=== PATIENT | male | born 1955 | race Caucasian/White ===

== ENCOUNTER 2018-10-28 19:21 | Emergency (ER) | payer MEDICARE, BC ==
[~2018-10-28] VITALS: Ht 177.8 cm; Wt 61.3 kg
[2018-10-28 19:55] LABS: EOSINOPHILS # (AUTO) 0.2 X10'3 (0-0.9); EOSINOPHILS % (AUTO) 3.7 % (0-6); HEMOGLOBIN 14.1 g/dl (14.0-17.9); LYMPHOCYTES # (AUTO) 1.3 X10'3 (1.1-4.8); LYMPHOCYTES % (AUTO) 28.7 % (21-51); MEAN CORPUSCULAR HEMOGLOBIN 31.8 PG (27.0-31.0); MEAN CORPUSCULAR HGB CONC 33.6 g/dL (33.0-36.5); MEAN CORPUSCULAR VOLUME 94.5 FL (78-98); MEAN PLATELET VOLUME 10.4 FL (7.4-10.4); MONOCYTES # (AUTO) 0.5 X10'3 (0-0.9); MONOCYTES % (AUTO) 10.5 % (2-12); NEUTROPHILS # (AUTO) 2.5 X10'3 (1.8-7.7); NEUTROPHILS % (AUTO) 56.1 % (42-75); PLATELET COUNT 147 X10'3 (140-440); RED BLOOD COUNT 4.44 X10'6 (4.70-6.10); RED CELL DISTRIBUTION WIDTH 14.1 % (11.5-14.5); WHITE BLOOD COUNT 4.4 X10'3 (4.5-11.0)
[2018-10-28 20:11] LABS: ALANINE AMINOTRANSFERASE 23 U/L (12-78); ALBUMIN/GLOBULIN RATIO 1.3 (1.1-1.5); ALKALINE PHOSPHATASE 46 IU/L (46-116); ANION GAP 8 (8-16); ASPARTATE AMINO TRANSFERASE 13 U/L (10-37); BILIRUBIN,TOTAL 0.3 MG/DL (0.1-1.0); BLOOD UREA NITROGEN 13 MG/DL (7-18); CALCIUM 8.9 MG/DL (8.5-10.1); CHLORIDE 106 MMOL/L (99-107); CREATININE 1.18 MG/DL (0.60-1.10); GLUCOSE 105 MG/DL (70-104); LIPASE 216 U/L (73-393); POTASSIUM 4.1 MMOL/L (3.5-5.1); SODIUM 141 MMOL/L (135-145); TOTAL CARBON DIOXIDE 27.1 MMOL/L (24-32); eGFR 62 ML/MIN
[2018-10-28 20:35] LABS: CLARITY,URINE CLEAR (Clear); COLOR,URINE YELLOW (Yellow); GLUCOSE, URINE NEGATIVE (Neg); KETONES,URINE TRACE mg/dl (Neg); LEUKOCYTE ESTERASE ,URINE NEGATIVE (Neg); NITRITES, URINE NEGATIVE (Neg); OCCULT BLOOD,URINE NEGATIVE (Neg); PROTEIN,URINE NEGATIVE (Neg); UROBILINOGEN,URINE 0.2 E.U/dL (0.2-1.0)
[2018-10-28 20:40] LABS: UA COLLECTION TYPE VOIDED
[2018-10-28] MEDS ORDERED: morphine 4 MG/ML inj SYRINge IV ONE (21:00)
[2018-10-28] MEDS ORDERED: normal saline 1000ML IV soln IVB ONE (21:00)
[2018-10-28] MEDS ORDERED: ondansetron/PF 4mg/2ml inj IV ONE (21:05)
[2018-10-28] MEDS: diatr meglu/diatrizoate 30ml oral sol.-(3 dose) bottle PO SCH ×3 (21:59→23:32)
[2018-10-28] MEDS ORDERED: iohexol 300mg/ml 100ml inj. ONE (22:15)
--- NOTE | 2018-10-29 01:04 | NUR ---
Dr. Higginbotham talking with pt about possibility of admission. He reports to pt that he is awaiting Hospitalist to evaluate pt for admission.
[2018-10-29] MEDS ORDERED: morphine 4 MG/ML inj SYRINge IV ONE (01:05)
[2018-10-29] MEDS ORDERED: metoclopramide 5 mg/ml inj IV ONE (01:05)
[2018-10-29] MEDS ORDERED: SIMV10TA2 PO (01:10)
[2018-10-29] MEDS ORDERED: ZOLP10TA5 (01:10)
[2018-10-29] MEDS ORDERED: ALBU18HF2 INH (01:10)
[2018-10-29] MEDS ORDERED: HYDR-3972 (01:10)
[2018-10-29] MEDS ORDERED: pantoprazole 40 MG vial IV ONE (01:35)
[2018-10-29] MEDS ORDERED: ESOM20CA PO (01:36)
[2018-10-29] MEDS ORDERED: ESOMEPRAZOLE 40 MG VIAL IV ONE (01:40)
[2018-10-29 02:45] VITALS: BP 129/82
== END 2018-10-29 02:55 | disposition home or self-care (01) ==
LOC: ER 19:21
DX: K56.7 Ileus, unspecified (principal); R11.2 Nausea with vomiting, unspecified; I10 Essential (primary) hypertension; G89.29 Other chronic pain; Z98.890 Other specified postprocedural states; Z79.899 Other long term (current) drug therapy
CPT/HCPCS: 36415; 70450; 70486; 74018; 74177; 80053; 81003; 83690; 85025; 85610; 96361; 96374; 96375; 96376; 99284; J2270; J2405; J2765; J7030; Q9963; Q9967

== ENCOUNTER 2018-11-07 10:54 | Emergency (ER) | payer MEDICARE, BC ==
[~2018-11-07] VITALS: Ht 177.8 cm; Wt 72.0 kg
[~2018-11-07 10:54] MED LIST: ALBU18HF2 INH; ESOM20CA PO; HYDR-3972; SIMV10TA2 PO; ZOLP10TA5
[2018-11-07] MEDS ORDERED: ringers solution, lacted 1,000 ML IV ONE (12:40)
[2018-11-07] MEDS ORDERED: metoclopramide 5 mg/ml inj IV ONE (12:40)
[2018-11-07 14:03] LABS: BASOPHILS % (AUTO) 0.8 % (0-1); EOSINOPHILS # (AUTO) 0.1 X10'3 (0-0.9); EOSINOPHILS % (AUTO) 2.3 % (0-6); HEMATOCRIT 42.7 % (42.0-52.0); HEMOGLOBIN 14.1 g/dl (14.0-17.9); LYMPHOCYTES # (AUTO) 1.5 X10'3 (1.1-4.8); LYMPHOCYTES % (AUTO) 27.6 % (21-51); MEAN CORPUSCULAR HEMOGLOBIN 31.3 PG (27.0-31.0); MEAN CORPUSCULAR HGB CONC 33.1 g/dL (33.0-36.5); MEAN CORPUSCULAR VOLUME 94.5 FL (78-98); MEAN PLATELET VOLUME 11.7 FL (7.4-10.4); MONOCYTES # (AUTO) 0.4 X10'3 (0-0.9); MONOCYTES % (AUTO) 8.4 % (2-12); NEUTROPHILS # (AUTO) 3.2 X10'3 (1.8-7.7); NEUTROPHILS % (AUTO) 60.9 % (42-75); PLATELET COUNT 122 X10'3 (140-440); RED BLOOD COUNT 4.52 X10'6 (4.70-6.10); RED CELL DISTRIBUTION WIDTH 13.3 % (11.5-14.5); WHITE BLOOD COUNT 5.3 X10'3 (4.5-11.0)
[2018-11-07 14:48] LABS: ALANINE AMINOTRANSFERASE 22 U/L (12-78); ALBUMIN 3.5 G/DL (3.4-5.0); ALBUMIN/GLOBULIN RATIO 1.3 (1.1-1.5); ALKALINE PHOSPHATASE 35 IU/L (46-116); ANION GAP 4 (8-16); ASPARTATE AMINO TRANSFERASE 17 U/L (10-37); BILIRUBIN,TOTAL 0.4 MG/DL (0.1-1.0); BLOOD UREA NITROGEN 18 MG/DL (7-18); BUN/CREATININE RATIO 16.5 (5.4-32.0); CALCIUM 8.7 MG/DL (8.5-10.1); CHLORIDE 107 MMOL/L (99-107); CREATININE 1.09 MG/DL (0.60-1.10); GLUCOSE 88 MG/DL (70-104); LIPASE 196 U/L (73-393); POTASSIUM 3.9 MMOL/L (3.5-5.1); SODIUM 141 MMOL/L (135-145); TOTAL CARBON DIOXIDE 29.7 MMOL/L (24-32); TOTAL PROTEIN 6.1 G/DL (6.4-8.2); eGFR 68 ML/MIN
[2018-11-07] MEDS ORDERED: iohexol 300mg/ml 100ml inj. ONE (15:24)
[2018-11-07] MEDS ORDERED: ketamine 10mg/ml 20ml inj 22 MG in normal saline 100ml IV soln 97.8 ML IV ONE (16:45)
[2018-11-07] MEDS ORDERED: METO-292 PO (16:59)
--- NOTE | 2018-11-07 18:10 | NUR ---
PATIENT ONLY REQURIED HALF DOSE 11MG OF KETAMIN INFUSION. DR. DEGROOT AND MAIN RN ZENAIDA HILLMAN. PATIENT REPORTS PAIN 08/29. PATIENT REFUSED OTHER 11MG OF KETAMIN. PATIENT A&O X4.
[2018-11-07 18:12] VITALS: BP 150/101
== END 2018-11-07 19:00 | disposition home or self-care (01) ==
LOC: ER 10:55
DX: R10.84 Generalized abdominal pain (principal); R11.2 Nausea with vomiting, unspecified; R13.10 Dysphagia, unspecified; R63.4 Abnormal weight loss; R51 Headache; I10 Essential (primary) hypertension; G89.29 Other chronic pain; Z98.890 Other specified postprocedural states; Z79.899 Other long term (current) drug therapy
CPT/HCPCS: 36415; 74177; 80053; 83690; 85025; 96361; 96365; 96375; 99284; J2765; Q9967; J7120